=== PATIENT | female | born 1995 | race Caucasian/White ===

== ENCOUNTER 2018-10-11 12:07 | Emergency (ER) | payer OTHER ==
[~2018-10-11] VITALS: Ht 160 cm; Wt 47.2 kg
[2018-10-11 12:10] VITALS: BP 124/72
[2018-10-11] MEDS ORDERED: AUGMENTIN 875-1 EACH PO (12:31)
== END 2018-10-11 12:46 | disposition home or self-care (01) ==
LOC: ER 12:07
DX: S61.431A Puncture wound without foreign body of right hand, initial encounter (principal); W55.01XA Bitten by cat, initial encounter; Y93.89 Activity, other specified; Y92.89 Other specified places as the place of occurrence of the external cause; Y99.8 Other external cause status